=== PATIENT | male | born 1950 | race Caucasian/White ===

== ENCOUNTER 2020-01-10 08:56 | Emergency (ER) | payer OTHER ==
[~2020-01-10] VITALS: Ht 175.3 cm; Wt 98.0 kg
[~2020-01-10 08:56] MED LIST: ASPI-1886 PO; CLOP75TA PO; ENAL5TAB34 PO; INFL60SU14 IMVAC; ISOS10TA9 PO; METO-251 PO; SIMV40TA1 PO
--- NOTE | 2020-01-10 09:04 | NUR ---
PATIENT AMBULATED TO ER BED 9.
[2020-01-10 09:10] VITALS: BP 158/98
--- NOTE | 2020-01-10 09:10 | NUR ---
69 Y/O M C/C ALCOHOL WITHDRAWAL S/S X 1 DAY. PER PT HAS BEEN DRINKING FOR THE PAST 5 DAYS, LAST DRINK TODAY AT 0600 HOURS, APPROXIMATELY 0600 HOURS. PER PT FEELING ANXIOUS,SHAKINESS, AND DEHYDRATED. PT PRESENTS A/OX4,COOPERATIVE,CALM,AMBULATORY,ANXIOUS,EUPNIC,HYPERTENSIVE. NEURO WNL. ALLERGIES PNC. HX ETOH,HTN,DM. RX INSULIN,METOPROLOL. PT FURTHER REPORTS DIARREAH/NAUSEA X2 DAYS, DENIES BLOOD IN STOOL. SIDE RAIL X1.
[2020-01-10] MEDS ORDERED: NACL 0.9% 1,000 ML IV ONE (09:35)
[2020-01-10] MEDS ORDERED: FOLIC ACID 1 MG TAB PO ONE (09:35)
[2020-01-10] MEDS ORDERED: THIAMINE 200 MG/2 ML VIAL IM ONE (09:35)
--- NOTE | 2020-01-10 09:55 | NUR ---
PT RESTING IN BED, SIDE RAIL X1
[2020-01-10 10:18] LABS: BASOPHILS % (AUTO) 0.5 % (0.0-2.0); EOSINOPHILS # (AUTO) 0.1 K/uL (0-0.4); EOSINOPHILS % (AUTO) 0.6 % (0.0-4.0); HEMATOCRIT 44.7 % (36-52); HEMOGLOBIN 15.2 g/dL (12.0-18.0); LYMPHOCYTES # (AUTO) 3.6 K/uL (2.0-11.5); LYMPHOCYTES % (AUTO) 42.4 % (20.5-51.1); MEAN CORPUSCULAR HEMOGLOBIN 33 pg (27-31); MEAN CORPUSCULAR HGB CONC 34 g/dL (33-37); MEAN CORPUSCULAR VOLUME 95.7 fL (80-94); MONOCYTES # (AUTO) 0.8 K/uL (0.8-1.0); NEUTROPHILS % (AUTO) 47.5 % (42.2-75.2); PLATELET COUNT (AUTO) 278 K/uL (140-450); RED BLOOD CELL COUNT(AUTO) 4.67 MIL/uL (4.20-6.10); RED CELL DISTRIBUTION WIDTH 13.1 % (11.6-13.7); WHITE BLOOD COUNT (AUTO) 8.5 K/uL (4.8-10.8)
[2020-01-10 10:29] LABS: ANION GAP 14.6 (8-16); CARBON DIOXIDE 25.2 mmol/L (21-32); CREATININE 0.9 mg/dL (0.6-1.3); POTASSIUM 3.8 mmol/L (3.5-5.1)
[2020-01-10] MEDS ORDERED: MAG SULF 2000 MG/WATER PREMIX 50 ML IV ONE ×2 (10:34→10:35)
--- NOTE | 2020-01-10 11:47 | NUR ---
PT RESTING IN BED, SIDE RAIL X1
--- NOTE | 2020-01-10 12:10 | NUR ---
DAUGHTER YADY PHONE: [phone]
[2020-01-10 12:22] VITALS: BP 160/92
--- NOTE | 2020-01-10 12:22 | NUR ---
Patient discharged with v/s stable. Written and verbal after care instructions given and explained. Patient alert, oriented and verbalized understanding of instructions. Ambulatory with steady gait. All questions addressed prior to discharge. ID band removed. Patient advised to follow up with PMD. Rx of LIBRIUM given. Patient educated on indication of medication including possible reaction and side effects. Opportunity to ask questions provided and answered.
== END 2020-01-10 12:22 | disposition home or self-care (01) ==
LOC: MED 08:56
DX: E86.0 Dehydration (principal); F10.129 Alcohol abuse with intoxication, unspecified; R11.2 Nausea with vomiting, unspecified; I11.0 Hypertensive heart disease with heart failure; Z86.73 Personal history of transient ischemic attack (TIA), and cerebral infarction without residual deficits; Z88.0 Allergy status to penicillin; Z79.899 Other long term (current) drug therapy
CPT/HCPCS: 36415; 80048; 83735; 85025; 96361; 96365; 96366; 96372; 99284; J3411; J3475; J7030; 99283

== ENCOUNTER 2020-01-11 01:16 | Emergency (ER) | payer OTHER ==
[~2020-01-11] VITALS: Ht 180.3 cm; Wt 81.6 kg
[2020-01-11 01:19] VITALS: BP 184/111
--- NOTE | 2020-01-11 01:30 | NUR ---
ambulated to bed 12 with steady gait.
--- NOTE | 2020-01-11 01:31 | NUR ---
69 year old male presents to ED with c/o ETOH x 1 hour. states drank 1/2 bottle of whiskey. denies any other s/sx. awaiting MSE. pmhx: DM, HTN allx: PCN
[2020-01-11] MEDS ORDERED: NACL 0.9% 1,000 ML IV ONE (01:45)
--- NOTE | 2020-01-11 01:55 | NUR ---
BLOOD DRAWN AND TAKEN TO LAB.
[2020-01-11 02:10] LABS: BASOPHILS % (AUTO) 0.6 % (0.0-2.0); EOSINOPHILS # (AUTO) 0.1 K/uL (0-0.4); EOSINOPHILS % (AUTO) 1.3 % (0.0-4.0); HEMOGLOBIN 15.6 g/dL (12.0-18.0); LYMPHOCYTES # (AUTO) 2.9 K/uL (2.0-11.5); LYMPHOCYTES % (AUTO) 40.5 % (20.5-51.1); MEAN CORPUSCULAR HEMOGLOBIN 33 pg (27-31); MEAN CORPUSCULAR HGB CONC 35 g/dL (33-37); MEAN CORPUSCULAR VOLUME 95.7 fL (80-94); MONOCYTES # (AUTO) 0.7 K/uL (0.8-1.0); NEUTROPHILS # (AUTO) 3.5 K/uL (1.8-7.7); NEUTROPHILS % (AUTO) 47.6 % (42.2-75.2); PLATELET COUNT (AUTO) 264 K/uL (140-450); RED CELL DISTRIBUTION WIDTH 13.1 % (11.6-13.7); WHITE BLOOD COUNT (AUTO) 7.3 K/uL (4.8-10.8)
[2020-01-11 02:22] LABS: ALBUMIN 3.4 g/dL (3.4-5.0); ANION GAP 12.5 (8-16); CARBON DIOXIDE 27.5 mmol/L (21-32); TOTAL BILIRUBIN 0.9 mg/dL (0.0-1.0)
--- NOTE | 2020-01-11 02:45 | NUR ---
provided blanker per pt request. NS bolus finished.
[2020-01-11 03:21] VITALS: BP 151/89
--- NOTE | 2020-01-11 04:01 | NUR ---
pt laying down, asleep. no further needs at this time. arousable with light tapping.
--- NOTE | 2020-01-11 06:20 | NUR ---
Patient discharged with v/s stable. Written and verbal after care instructions given and explained. Patient verbalized understanding. Ambulatory with steady gait. All questions addressed prior to discharge. Advised to follow up with PMD.
== END 2020-01-11 06:20 | disposition home or self-care (01) ==
LOC: MED 01:16
DX: F10.129 Alcohol abuse with intoxication, unspecified (principal); R19.7 Diarrhea, unspecified; E11.9 Type 2 diabetes mellitus without complications; I10 Essential (primary) hypertension; Z86.73 Personal history of transient ischemic attack (TIA), and cerebral infarction without residual deficits; Z79.899 Other long term (current) drug therapy; Z79.82 Long term (current) use of aspirin; Z88.0 Allergy status to penicillin
CPT/HCPCS: 36415; 80053; 83690; 85025; 96360; 96361; 99283

== ENCOUNTER 2020-01-11 16:40 | Emergency (ER) | payer OTHER ==
[~2020-01-11] VITALS: Ht 180.3 cm; Wt 90.7 kg
[2020-01-11 16:53] VITALS: BP 203/121
[2020-01-11] MEDS ORDERED: NACL 0.9% 1,000 ML IV ONE (16:59)
[2020-01-11] MEDS ORDERED: LORazepam 2 MG/ML VIAL IVP ONE (17:00)
--- NOTE | 2020-01-11 17:00 | NUR ---
PT PRESENTS TO THE ER WITH ALCOHOL WITHDRAWAL SX OF TREMORS ON DARA HANDS AND FATIGUE. LAST DRINK WAS YESTERDAY. PT WAS SEEN IN OUR ER THIS MORNING, YESTERDAY, AND THE DAY BEFORE. PT HAS A BOTTLE OF LIBRIUM AND PEDIALYTE WITH HIM. DENIES N/V/D; SKIN IS WARM/DRY/FLUSHED; AAOX4 WITH EVEN AND STEADY GAIT; PT DENIES ANY FEVER, CP, SOB, OR COUGH AT THIS TIME; PATIENT STATES PAIN OF 0/10 AT THIS TIME; VSS; PATIENT POSITIONED FOR COMFORT; HOB ELEVATED; BEDRAILS UP X2; BED DOWN. ER MD MADE AWARE OF PT STATUS.
[2020-01-11 17:28] LABS: BASOPHILS % (AUTO) 0.5 % (0.0-2.0); EOSINOPHILS % (AUTO) 0.2 % (0.0-4.0); HEMATOCRIT 44.5 % (36-52); HEMOGLOBIN 15.3 g/dL (12.0-18.0); LYMPHOCYTES # (AUTO) 1.6 K/uL (2.0-11.5); LYMPHOCYTES % (AUTO) 21.4 % (20.5-51.1); MEAN CORPUSCULAR HEMOGLOBIN 33 pg (27-31); MEAN CORPUSCULAR HGB CONC 35 g/dL (33-37); MEAN CORPUSCULAR VOLUME 95.5 fL (80-94); MONOCYTES # (AUTO) 0.7 K/uL (0.8-1.0); MONOCYTES % (AUTO) 9.5 % (1.7-9.3); NEUTROPHILS % (AUTO) 68.4 % (42.2-75.2); PLATELET COUNT (AUTO) 266 K/uL (140-450); RED BLOOD CELL COUNT(AUTO) 4.65 MIL/uL (4.20-6.10); RED CELL DISTRIBUTION WIDTH 13.2 % (11.6-13.7); WHITE BLOOD COUNT (AUTO) 7.3 K/uL (4.8-10.8)
[2020-01-11 17:41] LABS: ALBUMIN 3.4 g/dL (3.4-5.0); ANION GAP 13.7 (8-16); CARBON DIOXIDE 26.1 mmol/L (21-32); POTASSIUM 3.8 mmol/L (3.5-5.1); TOTAL BILIRUBIN 1.3 mg/dL (0.0-1.0)
[2020-01-11 17:51] VITALS: BP 178/109
--- NOTE | 2020-01-11 19:10 | NUR ---
Pt report given to ELYSE Ruano. Transfer of care at this time.
== END 2020-01-11 21:14 | disposition home or self-care (01) ==
LOC: MED 16:40
DX: F10.239 Alcohol dependence with withdrawal, unspecified (principal); I10 Essential (primary) hypertension; E11.9 Type 2 diabetes mellitus without complications; I51.89 Other ill-defined heart diseases; Y84.0 Cardiac catheterization as the cause of abnormal reaction of the patient, or of later complication, without mention of misadventure at the time of the procedure; Z88.0 Allergy status to penicillin; Z86.73 Personal history of transient ischemic attack (TIA), and cerebral infarction without residual deficits; Z79.899 Other long term (current) drug therapy
CPT/HCPCS: 36415; 80053; 83690; 85025; 96361; 96374; 99283; J2060; J7030; 81002

== ENCOUNTER 2020-07-01 15:08 | Emergency (ER) | payer OTHER ==
[~2020-07-01] VITALS: Ht 177.8 cm; Wt 92.5 kg
[2020-07-01 15:11] VITALS: BP 167/109
--- NOTE | 2020-07-01 15:13 | NUR ---
Pt taken to ER bed 3.
[2020-07-01] MEDS ORDERED: NACL 0.9% 500 ML IV ONE (15:20)
[2020-07-01] MEDS ORDERED: ASPIRIN 81 MG TAB.CHEW PO ONE (15:20)
--- NOTE | 2020-07-01 15:32 | NUR ---
DR SCHAEFFER AT PT BEDSIDE FOR EVALUATION
[2020-07-01] MEDS ORDERED: LORazepam 2 MG/ML VIAL IVP ONE ×2 (15:35→17:00)
[2020-07-01] MEDS ORDERED: NACL 0.9% 1,000 ML IV ONE (15:35)
--- NOTE | 2020-07-01 15:35 | NUR ---
70 Y/O MALE PT C/O CHEST PAIN THIS MORNING THAT RADIATED TO LEFT ARM AFTER DRINKING 6 BEERS TODAY. PT DENIES PAIN AT THIS TIME. PT STATES HIS CHEST HURTS WHEN HE DRINKS AND IT HAS HAPPENED BEFORE. PT DENIES TAKING ANYTHING FOR THE PAIN. PT IS A&O X4 WITH EVEN AND UNLABORED RESPIRATIONS. PT IS LAYING IN BED, IN LOWEST POSITION, BRAKES LOCKED X1 SIDERAIL UP. MEDHX: DM, ASTHMA NKA
--- NOTE | 2020-07-01 15:36 | NUR ---
certified hyperbaric technician at pt bedside.
[2020-07-01] MEDS ORDERED: ONDANSETRON 4 MG/2 ML VIAL IVP ONE (15:40)
--- NOTE | 2020-07-01 15:40 | NUR ---
RN at pt bedside for further evaluation.
--- NOTE | 2020-07-01 15:47 | NUR ---
RAD AT BEDSIDE
[2020-07-01 15:56] LABS: BASOPHILS # (AUTO) 0.2 K/uL (0.00-0.22); BASOPHILS % (AUTO) 2.2 % (0.0-2.0); EOSINOPHILS % (AUTO) 0.1 % (0.0-4.0); HEMATOCRIT 41.6 % (36-52); HEMOGLOBIN 13.9 g/dL (12.0-18.0); LYMPHOCYTES # (AUTO) 1.6 K/uL (2.0-11.5); LYMPHOCYTES % (AUTO) 23.3 % (20.5-51.1); MEAN CORPUSCULAR HEMOGLOBIN 32 pg (27-31); MEAN CORPUSCULAR HGB CONC 34 g/dL (33-37); MEAN CORPUSCULAR VOLUME 94.7 fL (80-94); MONOCYTES # (AUTO) 0.4 K/uL (0.8-1.0); NEUTROPHILS # (AUTO) 4.8 K/uL (1.8-7.7); NEUTROPHILS % (AUTO) 68.4 % (42.2-75.2); PLATELET COUNT (AUTO) 253 K/uL (140-450); RED CELL DISTRIBUTION WIDTH 13.7 % (11.6-13.7)
--- NOTE | 2020-07-01 16:17 | NUR ---
PT USING URINAL AT BEDSIDE
[2020-07-01 16:31] LABS: ALBUMIN 3.6 g/dL (3.4-5.0); CARBON DIOXIDE 26.9 mmol/L (21-32); CREATININE 0.8 mg/dL (0.6-1.3); POTASSIUM 3.9 mmol/L (3.5-5.1)
--- NOTE | 2020-07-01 16:51 | NUR ---
PT SLEEPING IN BED. EVEN AND UNLABORED RESPIRATIONS OBSERVED. BED IN LOWEST POSITION, BRAKES LOCKED X1 SIDERAIL UP. VSS. WILL CONTINUE TO MONITOR.
[2020-07-01] MEDS ORDERED: LORazepam 2 MG/ML VIAL IM ONE (17:40)
--- NOTE | 2020-07-01 17:58 | NUR ---
PT SITTING IN BED ON PHONE. EVEN AND UNLABORED RESPIRATIONS OBSERVED. BED IN LOWEST POSITION, BRAKES LOCKED X1 SIDERAIL UP. VSS. WILL CONTINUE TO MONITOR. PT DENIES ANY PAIN AT THIS TIME.
[2020-07-01 19:05] VITALS: BP 158/88
--- NOTE | 2020-07-01 19:06 | NUR ---
Patient discharged with v/s stable. Written and verbal after care instructions given and explained. Patient alert, oriented and verbalized understanding of instructions. Ambulatory with steady gait. All questions addressed prior to discharge. ID band removed. Patient advised to follow up with PMD. Rx of zofran ODT 4mg PO q8hrs and xanax 0.5mg tab BID PRN given. Patient educated on indication of medication including possible reaction and side effects. Opportunity to ask questions provided and answered.
== END 2020-07-01 19:04 | disposition home or self-care (01) ==
LOC: MED 15:08
DX: F10.19 Alcohol abuse with unspecified alcohol-induced disorder (principal); R11.2 Nausea with vomiting, unspecified; I11.9 Hypertensive heart disease without heart failure; E11.9 Type 2 diabetes mellitus without complications; Z86.73 Personal history of transient ischemic attack (TIA), and cerebral infarction without residual deficits; Z88.0 Allergy status to penicillin; Y90.9 Presence of alcohol in blood, level not specified
CPT/HCPCS: 36415; 71045; 80053; 82140; 83690; 84484; 85025; 93005; 96361; 96372; 96374; 96375; 99285; J2060; J2405; J7030; 99284

== ENCOUNTER 2020-07-02 15:25 | Emergency (ER) | payer OTHER ==
[~2020-07-02] VITALS: Ht 180.3 cm; Wt 81.6 kg
[2020-07-02 15:45] VITALS: BP 134/85
[2020-07-02] MEDS: NACL 0.9% 1,000 ML IV ONE (16:19)
[2020-07-02 16:38] LABS: BASOPHILS % (AUTO) 0.5 % (0.0-2.0); EOSINOPHILS % (AUTO) 0.3 % (0.0-4.0); HEMATOCRIT 41.3 % (36-52); HEMOGLOBIN 13.9 g/dL (12.0-18.0); LYMPHOCYTES % (AUTO) 26.1 % (20.5-51.1); MEAN CORPUSCULAR HEMOGLOBIN 32 pg (27-31); MEAN CORPUSCULAR HGB CONC 34 g/dL (33-37); MONOCYTES # (AUTO) 0.6 K/uL (0.8-1.0); NEUTROPHILS % (AUTO) 65.1 % (42.2-75.2); PLATELET COUNT (AUTO) 241 K/uL (140-450); RED BLOOD CELL COUNT(AUTO) 4.35 MIL/uL (4.20-6.10); RED CELL DISTRIBUTION WIDTH 13.5 % (11.6-13.7); WHITE BLOOD COUNT (AUTO) 7.6 K/uL (4.8-10.8)
[2020-07-02 16:46] LABS: PROTHROMBIN TIME 10.4 secs (10.8-13.4)
[2020-07-02] MEDS: PANTOPRAZOLE 40 MG INJ VIAL IVP ONE (16:53)
[2020-07-02] MEDS: ONDANSETRON 4 MG/2 ML VIAL IVP ONE (16:53)
[2020-07-02 16:57] LABS: ALBUMIN 3.7 g/dL (3.4-5.0); ASPARTATE AMINOTRANSFERASE 91 U/L (15-37); CHLORIDE 96 mmol/L (98-107); CREATININE 0.9 mg/dL (0.6-1.3); GFR ARICAN-AMERICAN 107 mL/min (>90); GLUCOSE 172 mg/dL (74-106); SODIUM SERUM 132 mmol/L (136-145); TOTAL BILIRUBIN 1.3 mg/dL (0.0-1.0); UREA NITROGEN, BLOOD 13 mg/dL (7-18)
[2020-07-02 17:00] LABS: ACETAMINOPHEN < 0.5 ug/ml (10-30); SALICYLATE < 2.8 mg/dL (2.8-20.0)
[2020-07-02 17:04] LABS: BARBITURATE, URINE NEGATIVE ng/ml (NEG <=200); BENZODIAZEPINE, URINE NEGATIVE ng/mL (NEG <=200); CANNABINOID, URINE NEGATIVE ng/mL (NEG <=50); COCAINE, URINE NEGATIVE ng/mL (NEG <=300); OPIATE, URINE NEGATIVE ng/mL (NEG <=2000); PHENCYCLIDINE SCREEN,URINE NEGATIVE ng/mL (NEG <=25)
[2020-07-02 18:41] VITALS: BP 130/84
== END 2020-07-02 18:41 | disposition home or self-care (01) ==
LOC: MED 15:25
DX: F10.129 Alcohol abuse with intoxication, unspecified (principal); J45.909 Unspecified asthma, uncomplicated; I11.9 Hypertensive heart disease without heart failure; Z86.73 Personal history of transient ischemic attack (TIA), and cerebral infarction without residual deficits; Z88.0 Allergy status to penicillin; Z79.899 Other long term (current) drug therapy
CPT/HCPCS: 36415; 71045; 80053; 80305; 83690; 84484; 85025; 85610; 85730; 93005; 96361; 96374; 96375; 99285; C9113; G0480; G0482; J2405

== ENCOUNTER 2020-07-03 14:07 | Emergency (ER) | payer OTHER ==
[~2020-07-03] VITALS: Ht 177.8 cm; Wt 77.1 kg
[2020-07-03 14:10] VITALS: BP 173/107
--- NOTE | 2020-07-03 14:10 | NUR ---
PT AMBULATED FROM [facility] TO [facility] WITH STEADY GAIT.
--- NOTE | 2020-07-03 15:30 | NUR ---
PATIENT LEFT WITHOUT BEING SEEN BY DR. SCHAEFFER. NO FURTHER CARE PROVIDED FOR PATIENT.
== END 2020-07-03 15:30 | disposition left against medical advice (07) ==
LOC: MED 14:07
DX: F10.129 Alcohol abuse with intoxication, unspecified (principal); R07.9 Chest pain, unspecified; Y90.9 Presence of alcohol in blood, level not specified; Z53.21 Procedure and treatment not carried out due to patient leaving prior to being seen by health care provider

== ENCOUNTER 2020-07-12 12:17 | Emergency (ER) | payer OTHER ==
[~2020-07-12] VITALS: Ht 180.3 cm; Wt 81.6 kg
[2020-07-12 12:20] VITALS: BP 145/95
[2020-07-12 12:57] LABS: BASOPHILS % (AUTO) 0.6 % (0.0-2.0); HEMATOCRIT 41.1 % (36-52); HEMOGLOBIN 13.9 g/dL (12.0-18.0); LYMPHOCYTES # (AUTO) 1.4 K/uL (2.0-11.5); LYMPHOCYTES % (AUTO) 20.2 % (20.5-51.1); MEAN CORPUSCULAR HEMOGLOBIN 33 pg (27-31); MEAN CORPUSCULAR HGB CONC 34 g/dL (33-37); MEAN CORPUSCULAR VOLUME 96.4 fL (80-94); MONOCYTES # (AUTO) 0.9 K/uL (0.8-1.0); MONOCYTES % (AUTO) 12.8 % (1.7-9.3); NEUTROPHILS # (AUTO) 4.7 K/uL (1.8-7.7); NEUTROPHILS % (AUTO) 66.4 % (42.2-75.2); PLATELET COUNT (AUTO) 201 K/uL (140-450); RED BLOOD CELL COUNT(AUTO) 4.26 MIL/uL (4.20-6.10); RED CELL DISTRIBUTION WIDTH 13.8 % (11.6-13.7)
[2020-07-12 13:30] LABS: ALBUMIN 3.6 g/dL (3.4-5.0); ANION GAP 13.5 (8-16); CARBON DIOXIDE 26.3 mmol/L (21-32); CREATININE 0.9 mg/dL (0.6-1.3); POTASSIUM 3.8 mmol/L (3.5-5.1); PROTHROMBIN TIME 10.6 secs (10.8-13.4); TOTAL BILIRUBIN 1.1 mg/dL (0.0-1.0)
[2020-07-12] MEDS ORDERED: FAMOTIDINE 20 MG TAB PO ONE (13:45)
[2020-07-12] MEDS ORDERED: ALUMINUM HYD/MAG/SIMETHICONE 30 ML UDC PO ONE (13:45)
[2020-07-12] MEDS ORDERED: DICYCLOMINE 10 MG CAP PO ONE (13:45)
[2020-07-12] MEDS ORDERED: OMEP40EC24 PO (16:32)
[2020-07-12] MEDS ORDERED: ATA25 PO (16:32)
[2020-07-12] MEDS ORDERED: IBUP-2213 PO (16:32)
[2020-07-12 16:47] VITALS: BP 120/84
== END 2020-07-12 16:48 | disposition home or self-care (01) ==
LOC: MED 12:17
DX: R07.9 Chest pain, unspecified (principal); R10.13 Epigastric pain; J45.909 Unspecified asthma, uncomplicated; E11.9 Type 2 diabetes mellitus without complications; I11.9 Hypertensive heart disease without heart failure; Z86.73 Personal history of transient ischemic attack (TIA), and cerebral infarction without residual deficits; Z88.0 Allergy status to penicillin; Z79.899 Other long term (current) drug therapy
CPT/HCPCS: 36415; 71045; 80053; 83690; 83880; 84484; 85025; 85610; 85730; 93005; 99285; G0482